=== PATIENT | female | born 1955 | race Caucasian/White ===

== ENCOUNTER 2024-03-10 06:48 | Day surgery (SDC) | payer MEDICARE ==
[2024-03-09 11:28] VITALS: BMI 30.4
[2024-03-10] MEDS ORDERED: Lidocaine 1% PF 5 ML VIAL ONE (08:26)
[2024-03-10] MEDS ORDERED: PROPOFOL 40 ML ONE (08:26)
[2024-03-10] MEDS ORDERED: PROPOFOL 20 ML ONE ×2 (08:48→09:00)
== END 2024-03-10 09:50 | disposition home or self-care (01) ==
LOC: CSHSDC 06:48
PROVIDERS: ATTEND Surgery
DX: Z86.0100 Personal history of colon polyps, unspecified (principal); R10.12 Left upper quadrant pain
CPT/HCPCS: 88305; J2704

== ENCOUNTER 2025-02-27 06:10 | Observation (INO) | payer OTHER ==
[2025-02-27 06:52] LABS: #Basophils 0.05 10x3/uL (0.0-0.2); #Eosinophils 0.49 10x3/uL (0.0-0.5); #Monocytes 1.11 10x3/uL (0.0-1.1); #Neutrophils 3.61 10x3/uL (1.5-8.4); %Basophils 0.7 % (0.0-2.0); %Eosinophils 6.6 % (0.0-6.0); %Lymphocytes 28.6 % (18.0-47.0); %Monocytes 15.0 % (0.0-10.0); %Neutrophils 48.8 % (40.0-75.0); Hematocrit 34.7 % (34.9-44.5); Hemoglobin 11.0 g/dL (12.0-15.5); Mean Corpuscular Hemoglobin 26.2 pg (27.0-33.0); Mean Corpuscular Volume 82.6 fL (81.6-98.3); Platelet Count 258 10x3/uL (150-450); Red Blood Cell (RBC) Count 4.20 10x6/uL (3.90-5.03); White Blood Cell (WBC) Count 7.40 10x3/uL (3.5-10.5)
[2025-02-27 07:11] LABS: ALT (SGPT) Less than 7 U/L (Less than 34); AST (SGOT) 13 U/L (11-34); Albumin 2.9 g/dL (3.1-4.5); Alkaline Phosphatase 86 U/L (40-110); Anion Gap 11 mmol/L (10-20); BUN (Urea Nitrogen) 20 mg/dL (9.8-20.1); Bilirubin, Total 0.2 mg/dL (0.3-1.2); Calc. Creatinine Clearance 0 mL/min (70-130); Calcium 8.3 mg/dL (7.8-10.44); Carbon Dioxide 25 mmol/L (23-31); Chloride 109 mmol/L (98-107); Globulin 2.8 g/dL (2.4-3.5); Glucose 133 mg/dL (80-115); Magnesium 2.0 mg/dL (1.6-2.6); Potassium 4.2 mmol/L (3.5-5.1); Sodium 141 mmol/L (136-145)
[2025-02-27] MEDS ORDERED: Magnesium 2 GM/50 ML BAG (IN WATER) ONE (07:16)
[2025-02-27] MEDS ORDERED: Aspirin Chewable 81 MG TAB ONE (07:16)
[2025-02-27 07:18] LABS: Troponin I Less than 0.010 ng/mL (< 0.028)
[2025-02-27] MEDS ORDERED: dilTIAZem 25 MG/5 ML VIAL ONE (08:09)
[2025-02-27] MEDS ORDERED: Digoxin 0.5 MG/2 ML AMP ONE (08:09)
[2025-02-27] MEDS ORDERED: Enoxaparin 80 MG (0.8 mL) SYRINGE ONE (11:14)
[2025-02-27] MEDS ORDERED: Senokot S 8.6-50 MG TAB PO PRN (11:37)
[2025-02-27] MEDS ORDERED: Communication Order-Pharmacy FS PRN (11:39)
[2025-02-27] MEDS ORDERED: Magnesium 2 GM/50 ML(in water) 2 GM in Premix 1 BAG IVPB PRN (11:45)
[2025-02-27] MEDS ORDERED: Electrolyte Replacement Protocol 1 EACH FS SCH (11:45)
[2025-02-27] MEDS ORDERED: Potassium Chloride 20 MEQ in Premix 1 BAG IVPB PRN (11:45)
[2025-02-27] MEDS ORDERED: PHOS-NAK 1 PKT PACK PO PRN (11:45)
[2025-02-27 13:39] VITALS: BMI 29.1
[2025-02-27 16:43] LABS: Troponin I 0.014 ng/mL (< 0.028)
[2025-02-27] MEDS: Aspirin 81 mg Enteric Coated Tablet PO SCH (18:11)
[2025-02-27] MEDS: Acetaminophen 325 MG TAB PO PRN (18:12)
[2025-02-27] MEDS: Apixaban 5 MG TAB PO SCH (20:43)
[2025-02-27] MEDS: Melatonin 3 MG TAB PO PRN (20:50)
[2025-02-27 21:31] LABS: Troponin I Less than 0.010 ng/mL (< 0.028)
[2025-02-27] MEDS ORDERED: Enoxaparin 80 MG (0.8 mL) SYRINGE SC SCH (23:00)
[2025-02-27] MEDS: Ibuprofen 200 MG TAB PO SCH (23:41)
[2025-02-28 01:20] LABS: Troponin I Less than 0.010 ng/mL (< 0.028)
[2025-02-28 04:49] LABS: #Basophils 0.07 10x3/uL (0.0-0.2); #Eosinophils 0.58 10x3/uL (0.0-0.5); #Monocytes 0.97 10x3/uL (0.0-1.1); #Neutrophils 3.98 10x3/uL (1.5-8.4); %Basophils 0.9 % (0.0-2.0); %Eosinophils 7.4 % (0.0-6.0); %Lymphocytes 28.0 % (18.0-47.0); %Monocytes 12.4 % (0.0-10.0); %Neutrophils 51.0 % (40.0-75.0); Hematocrit 34.2 % (34.9-44.5); Hemoglobin 11.2 g/dL (12.0-15.5); Mean Corpuscular Hemoglobin 25.9 pg (27.0-33.0); Mean Corpuscular Volume 79.2 fL (81.6-98.3); Platelet Count 281 10x3/uL (150-450); Red Blood Cell (RBC) Count 4.32 10x6/uL (3.90-5.03); White Blood Cell (WBC) Count 7.81 10x3/uL (3.5-10.5)
[2025-02-28 05:02] LABS: Anion Gap 11 mmol/L (10-20); BUN (Urea Nitrogen) 15 mg/dL (9.8-20.1); Calc. Creatinine Clearance 91 mL/min (70-130); Calcium 8.5 mg/dL (7.8-10.44); Carbon Dioxide 24 mmol/L (23-31); Chloride 111 mmol/L (98-107); Glucose 94 mg/dL (80-115); Potassium 4.1 mmol/L (3.5-5.1); Sodium 142 mmol/L (136-145)
[2025-02-28] MEDS: Transdermal Patch Removal TOP SCH (11:06)
[2025-02-28 11:10] VITALS: TEMP 98.4
[2025-02-28 12:42] VITALS: BP 180/95
== END 2025-02-28 13:17 | disposition home or self-care (01) ==
LOC: CSHERS 06:10 → CSHTELE 11:30
PROVIDERS: ADMIT Internal Medicine; ATTEND Student in an Organized Health Care Education/Training Program
PROC: B24BZZZ Ultrasonography of Heart with Aorta (ICD-10-PCS; principal; 2025-02-27)
DX: I48.0 Paroxysmal atrial fibrillation (principal); I25.10 Atherosclerotic heart disease of native coronary artery without angina pectoris; I10 Essential (primary) hypertension; E78.5 Hyperlipidemia, unspecified; J44.9 Chronic obstructive pulmonary disease, unspecified; F32.A Depression, unspecified; F41.9 Anxiety disorder, unspecified; Z88.5 Allergy status to narcotic agent; Z79.02 Long term (current) use of antithrombotics/antiplatelets; Z79.82 Long term (current) use of aspirin; Z79.01 Long term (current) use of anticoagulants; Z79.899 Other long term (current) drug therapy
CPT/HCPCS: 71045; 71275; 80048; 83735; 83880; 84484 ×3; 85025; 85379; 87428; 93005; 93306; G0378 ×3; J1160; J1650; J3475; 36415; 80053; 84443; 93010; 96372; 96374; 96375